=== PATIENT | male | born 1930 | race Caucasian/White ===

== ENCOUNTER 2017-01-05 08:13 | Inpatient (IN) | payer MEDICARE ==
[~2017-01-05] VITALS: Ht 177.8 cm; Wt 97.1 kg
[~2017-01-05 08:13] MED LIST: AMLO5TAB2 PO; CARV3.1212 PO; CARV6.252 PO; CHOL239. PO; CITA20TA5 PO; CLON0.1T12 PO; DIVA250T14 PO; HUM100VI SC; HYDR-3307 PO; HYDR-3342 PO; LISI-170 PO; LISI40TA PO; NYST1POW2 TP; POLY1GRA PO; PRAV40TA2 PO
[2017-01-05] MEDS ORDERED: SODIUM CHLORIDE FLUSH 10ML SYR IVF ONE (08:30)
[2017-01-05] MEDS ORDERED: SODIUM CHLORIDE 0.9% 1,000ML IVBOLUS ONE ×2 (08:30→13:00)
[2017-01-05 09:07] LABS: BLOOD UREA NITROGEN 79 mg/dL (7-18)
[2017-01-05 09:08] LABS: ASPARTATE AMINO TRANSFERASE 19 U/L (15-37)
[2017-01-05] MEDS ORDERED: HYDR-3307 PO (09:40)
[2017-01-05] MEDS ORDERED: DEXTROSE 10%, 250ML IV ONE (09:40)
[2017-01-05 09:49] LABS: DIFF TOTAL CELLS COUNTED 100 CELL DIFF
[2017-01-05 09:58] LABS: VERIFY COUNTS? YES
[2017-01-05] MEDS ORDERED: SODIUM POLY SULFONATE UDC 15 GM/60 ML PO ONE (10:00)
[2017-01-05] MEDS ORDERED: CALCIUM CHLORIDE 10%, 10ML SYR IVPush ONE (10:00)
[2017-01-05] MEDS ORDERED: INSULIN REGULAR 100 UNITS/ML, 3ML VIAL IVPush ONE (10:00)
[2017-01-05 10:01] LABS: ANISOCYTOSIS 1+
[2017-01-05] MEDS ORDERED: DEXTROSE 50%, 50ML SYRINGE ONE (11:21)
[2017-01-05] MEDS ORDERED: INSULIN REGULAR 100 UNITS/ML, 3ML VIAL ONE (11:22)
[2017-01-05] MEDS ORDERED: CALCIUM CHLORIDE 10%, 10ML SYR ONE (11:22)
[2017-01-05] MEDS ORDERED: SODIUM POLYSTYRENE SULFONATE ORAL SUSP ONE (11:23)
[2017-01-05] MEDS ORDERED: DEXTROSE 50%, 50ML SYRINGE IVPush ONE (12:00)
[2017-01-05] MEDS ORDERED: SODIUM CHLORIDE 0.9%, 500ML IVBOLUS ONE (12:00)
[2017-01-05] MEDS ORDERED: CEFTRIAXONE PMX 1GM/50ML 50 ML ONE (12:26)
[2017-01-05] MEDS: CEFTRIAXONE PMX 1GM/50ML 50 ML IVPB ONE ×2 (12:29→13:36)
[2017-01-05] MEDS: SODIUM CHLORIDE 0.9% 1,000 ML IV SCH (12:32)
[2017-01-05] MEDS ORDERED: ONDANSETRON 2MG/ML, 2ML IVP PRN (13:00)
[2017-01-05] MEDS ORDERED: PROMETHAZINE 25 MG/ML, 1ML IM PRN (13:00)
[2017-01-05] MEDS ORDERED: DOCUSATE 100 MG CAPSULE PO PRN (13:00)
[2017-01-05] MEDS ORDERED: POLYETHYLENE GLYCOL 17 GM PACKET PO PRN (13:00)
[2017-01-05] MEDS ORDERED: HEPARIN 5,000 UNITS/ML, 1ML SQ SCH (13:00)
[2017-01-05 15:28] VITALS: BP 131/63
[2017-01-05 20:49] VITALS: BP 130/71
[2017-01-05] MEDS: DIVALPROEX 250 MG TAB.ER.24H PO SCH (21:00)
[2017-01-05] MEDS: NYSTATIN TOPICAL POWDER 15GM TP SCH (21:00)
[2017-01-06] MEDS: SODIUM CHLORIDE 0.9% 1,000 ML IV SCH ×4 (00:38→21:01)
[2017-01-06 02:17] VITALS: BP 150/74
[2017-01-06 05:30] LABS: BLOOD UREA NITROGEN 74 mg/dL (7-18)
[2017-01-06 07:28] VITALS: BP 145/70
[2017-01-06] MEDS: NYSTATIN TOPICAL POWDER 15GM TP SCH ×2 (09:00→20:54)
[2017-01-06] MEDS: DIVALPROEX 250 MG TAB.ER.24H PO SCH ×2 (11:31→20:54)
[2017-01-06] MEDS: CITALOPRAM 20 MG TABLET PO SCH (11:31)
[2017-01-06] MEDS: CHOLESTYRAMINE LIGHT 4GM PACKET PO SCH (11:31)
[2017-01-06 12:56] VITALS: BP 164/76
[2017-01-06] MEDS: CEFTRIAXONE PMX 2GM/50ML 50 ML IV SCH (14:13)
[2017-01-06] MEDS: ACETAMINOPHEN 325 MG TABLET PO PRN (16:53)
[2017-01-06] MEDS: CARVEDILOL 6.25 MG TABLET PO SCH (16:54)
[2017-01-06 20:15] VITALS: BP 175/83
[2017-01-06 21:19] VITALS: BP 166/75
[2017-01-07 02:30] VITALS: BP 158/67
[2017-01-07] MEDS: ACETAMINOPHEN 325 MG TABLET PO PRN ×2 (03:53→10:36)
[2017-01-07] MEDS: CARVEDILOL 6.25 MG TABLET PO SCH (03:53)
[2017-01-07] MEDS: SODIUM CHLORIDE 0.9% 1,000 ML IV SCH (03:55)
[2017-01-07 06:30] LABS: BLOOD UREA NITROGEN 68 mg/dL (7-18)
[2017-01-07] MEDS: NYSTATIN TOPICAL POWDER 15GM TP SCH ×2 (07:30→21:00)
[2017-01-07] MEDS: CITALOPRAM 20 MG TABLET PO SCH (07:30)
[2017-01-07] MEDS: DIVALPROEX 250 MG TAB.ER.24H PO SCH ×2 (07:30→21:00)
[2017-01-07] MEDS: CHOLESTYRAMINE LIGHT 4GM PACKET PO SCH (07:30)
[2017-01-07 07:40] VITALS: BP 169/75
[2017-01-07 13:00] VITALS: BP 176/53
[2017-01-07] MEDS: CEFTRIAXONE PMX 2GM/50ML 50 ML IV SCH (15:36)
[2017-01-07] MEDS ORDERED: CARVEDILOL 12.5 MG TABLET PO SCH (18:00)
[2017-01-07 19:03] VITALS: BP 152/64
[2017-01-08] VITALS (8 sets, daily range): BP systolic 154–187; BP diastolic 46–86
[2017-01-08] MEDS: ENALAPRILAT 1.25 MG/ML, 2ML IV PRN (01:11)
[2017-01-08] MEDS: hydrALAzine 20 MG/ML, 1ML IV PRN (02:15)
[2017-01-08] MEDS ORDERED: CARVEDILOL 25 MG TABLET PO SCH (06:00)
[2017-01-08 06:27] LABS: BLOOD UREA NITROGEN 61 mg/dL (7-18)
[2017-01-08 06:33] LABS: TOTAL IRON BINDING CAPACITY 168 mcg/dL (250-450)
[2017-01-08] MEDS: SODIUM CHLORIDE 0.9% 1,000 ML IV SCH ×2 (09:00→12:32)
[2017-01-08] MEDS: FERROUS SULFATE 325 MG TABLET PO SCH (09:05)
[2017-01-08] MEDS: CHOLESTYRAMINE LIGHT 4GM PACKET PO SCH (09:05)
[2017-01-08] MEDS: DIVALPROEX 250 MG TAB.ER.24H PO SCH ×2 (09:05→19:58)
[2017-01-08] MEDS: CITALOPRAM 20 MG TABLET PO SCH (09:05)
[2017-01-08] MEDS: AMLODIPINE 5 MG TABLET PO SCH (09:05)
[2017-01-08] MEDS: NYSTATIN TOPICAL POWDER 15GM TP SCH ×2 (09:06→19:58)
[2017-01-08] MEDS: CEFTRIAXONE PMX 2GM/50ML 50 ML IV SCH (15:40)
[2017-01-08] MEDS: CARVEDILOL 12.5 MG TABLET PO SCH (18:00)
[2017-01-09 00:11] VITALS: BP 172/78
[2017-01-09] MEDS: SODIUM CHLORIDE 0.9% 1,000 ML IV SCH ×2 (01:56→15:32)
[2017-01-09] MEDS: hydrALAzine 20 MG/ML, 1ML IV PRN (03:10)
[2017-01-09 04:00] VITALS: BP 162/72
[2017-01-09] MEDS: CARVEDILOL 12.5 MG TABLET PO SCH ×2 (05:22→18:13)
[2017-01-09 06:23] LABS: BLOOD UREA NITROGEN 47 mg/dL (7-18)
[2017-01-09 06:31] VITALS: BP 179/69
[2017-01-09] MEDS: ENALAPRILAT 1.25 MG/ML, 2ML IV PRN (06:40)
[2017-01-09] MEDS: AMLODIPINE 5 MG TABLET PO SCH (09:27)
[2017-01-09] MEDS: FERROUS SULFATE 325 MG TABLET PO SCH (09:27)
[2017-01-09] MEDS: CITALOPRAM 20 MG TABLET PO SCH (09:27)
[2017-01-09] MEDS: CHOLESTYRAMINE LIGHT 4GM PACKET PO SCH (09:27)
[2017-01-09] MEDS: DIVALPROEX 250 MG TAB.ER.24H PO SCH ×2 (09:27→20:29)
[2017-01-09] MEDS: NYSTATIN TOPICAL POWDER 15GM TP SCH ×2 (09:28→20:29)
[2017-01-09] MEDS: CHOLECALCIFEROL 1,000 UNIT TABLET PO SCH (12:45)
[2017-01-09 13:22] VITALS: BP 186/67
[2017-01-09 14:18] VITALS: BP 161/75
[2017-01-09] MEDS: CEFTRIAXONE PMX 2GM/50ML 50 ML IV SCH (15:32)
[2017-01-09 20:00] VITALS: BP 163/62
[2017-01-10 00:55] VITALS: BP 143/69
[2017-01-10] MEDS: SODIUM CHLORIDE 0.9% 1,000 ML IV SCH (04:24)
[2017-01-10] MEDS: CARVEDILOL 12.5 MG TABLET PO SCH ×2 (05:41→19:04)
[2017-01-10 05:53] LABS: BLOOD UREA NITROGEN 39 mg/dL (7-18)
[2017-01-10 07:49] VITALS: BP 155/72
[2017-01-10] MEDS: DIVALPROEX 250 MG TAB.ER.24H PO SCH ×2 (08:17→20:00)
[2017-01-10] MEDS: CITALOPRAM 20 MG TABLET PO SCH (08:17)
[2017-01-10] MEDS: AMLODIPINE 5 MG TABLET PO SCH (08:17)
[2017-01-10] MEDS: FERROUS SULFATE 325 MG TABLET PO SCH (08:17)
[2017-01-10] MEDS: CHOLESTYRAMINE LIGHT 4GM PACKET PO SCH (08:18)
[2017-01-10] MEDS: CHOLECALCIFEROL 1,000 UNIT TABLET PO SCH (08:18)
[2017-01-10] MEDS: NYSTATIN TOPICAL POWDER 15GM TP SCH ×2 (08:30→20:00)
[2017-01-10] MEDS ORDERED: POTASSIUM CHLORIDE 20 MEQ TAB.ER.PRT PO ONE (08:30)
[2017-01-10 12:00] VITALS: BP 157/69
[2017-01-10] MEDS: ACETAMINOPHEN 325 MG TABLET PO PRN (12:41)
[2017-01-10] MEDS: CEFTRIAXONE PMX 2GM/50ML 50 ML IV SCH (14:27)
[2017-01-10 20:39] VITALS: BP 163/74
[2017-01-11 00:26] VITALS: BP 159/70
[2017-01-11] MEDS: CARVEDILOL 12.5 MG TABLET PO SCH ×2 (05:34→18:23)
[2017-01-11 06:27] LABS: BLOOD UREA NITROGEN 36 mg/dL (7-18)
[2017-01-11 06:55] VITALS: BP 152/70
[2017-01-11] MEDS: CHOLECALCIFEROL 1,000 UNIT TABLET PO SCH (08:51)
[2017-01-11] MEDS: CITALOPRAM 20 MG TABLET PO SCH (08:51)
[2017-01-11] MEDS: FERROUS SULFATE 325 MG TABLET PO SCH (08:51)
[2017-01-11] MEDS: AMLODIPINE 5 MG TABLET PO SCH (08:51)
[2017-01-11] MEDS: DIVALPROEX 250 MG TAB.ER.24H PO SCH ×2 (08:51→21:29)
[2017-01-11] MEDS: CHOLESTYRAMINE LIGHT 4GM PACKET PO SCH (09:00)
[2017-01-11] MEDS: NYSTATIN TOPICAL POWDER 15GM TP SCH ×2 (09:08→21:34)
[2017-01-11 12:05] VITALS: BP 141/65
[2017-01-11] MEDS: HYDROcodone/APAP 5/325 TABLET PO PRN ×2 (15:42→21:34)
[2017-01-11] MEDS: CEFTRIAXONE PMX 2GM/50ML 50 ML IV SCH (15:42)
[2017-01-11 19:14] VITALS: BP 146/70
[2017-01-11 21:25] VITALS: BP 165/81
[2017-01-12 01:28] VITALS: BP 162/65
[2017-01-12 05:16] LABS: BLOOD UREA NITROGEN 37 mg/dL (7-18)
[2017-01-12 05:27] LABS: ASPARTATE AMINO TRANSFERASE 27 U/L (15-37)
[2017-01-12 06:41] VITALS: BP 148/73
[2017-01-12] MEDS: CARVEDILOL 12.5 MG TABLET PO SCH ×2 (06:44→17:35)
[2017-01-12 07:49] VITALS: BP 150/73
[2017-01-12] MEDS: CITALOPRAM 20 MG TABLET PO SCH (09:45)
[2017-01-12] MEDS: AMLODIPINE 5 MG TABLET PO SCH (09:45)
[2017-01-12] MEDS: FERROUS SULFATE 325 MG TABLET PO SCH (09:45)
[2017-01-12] MEDS: CHOLECALCIFEROL 1,000 UNIT TABLET PO SCH (09:45)
[2017-01-12] MEDS: DIVALPROEX 250 MG TAB.ER.24H PO SCH ×2 (09:45→21:25)
[2017-01-12] MEDS: HYDROcodone/APAP 5/325 TABLET PO PRN ×2 (09:45→14:52)
[2017-01-12] MEDS: NYSTATIN TOPICAL POWDER 15GM TP SCH ×2 (09:46→21:25)
[2017-01-12 13:46] VITALS: BP 129/66
[2017-01-12 18:49] VITALS: BP 143/69
[2017-01-12 21:19] VITALS: BP 158/75
[2017-01-12] MEDS: CEFDINIR 300 MG CAPSULE PO SCH (21:25)
[2017-01-13 01:15] VITALS: BP 116/56
[2017-01-13 05:53] LABS: ASPARTATE AMINO TRANSFERASE 26 U/L (15-37); BLOOD UREA NITROGEN 42 mg/dL (7-18)
[2017-01-13] MEDS: CHOLESTYRAMINE LIGHT 4GM PACKET PO SCH ×2 (06:00→06:35)
[2017-01-13] MEDS: CARVEDILOL 12.5 MG TABLET PO SCH ×2 (06:34→17:25)
[2017-01-13 06:45] VITALS: BP 135/62
[2017-01-13] MEDS: FERROUS SULFATE 325 MG TABLET PO SCH (09:52)
[2017-01-13] MEDS: CITALOPRAM 20 MG TABLET PO SCH (09:52)
[2017-01-13] MEDS: AMLODIPINE 5 MG TABLET PO SCH (09:53)
[2017-01-13] MEDS: DIVALPROEX 250 MG TAB.ER.24H PO SCH ×2 (09:53→21:36)
[2017-01-13] MEDS: HYDROcodone/APAP 5/325 TABLET PO PRN ×2 (09:53→17:25)
[2017-01-13] MEDS: CHOLECALCIFEROL 1,000 UNIT TABLET PO SCH (09:53)
[2017-01-13] MEDS: CEFDINIR 300 MG CAPSULE PO SCH ×2 (09:54→21:36)
[2017-01-13] MEDS: NYSTATIN TOPICAL POWDER 15GM TP SCH ×2 (09:55→21:36)
[2017-01-13] MEDS ORDERED: HYDR-3343 PO (10:26)
[2017-01-13] MEDS ORDERED: AMLO5TAB2 PO (10:26)
[2017-01-13] MEDS ORDERED: CEFD300C37 PO (10:26)
[2017-01-13] MEDS ORDERED: CARV6.252 PO (10:26)
[2017-01-13] MEDS ORDERED: FERR325T20 PO (10:26)
[2017-01-13 13:17] VITALS: BP 121/68
[2017-01-13 20:00] VITALS: BP 106/64
[2017-01-14 00:54] VITALS: BP 119/62
[2017-01-14] MEDS: HYDROcodone/APAP 5/325 TABLET PO PRN ×2 (06:11→14:50)
[2017-01-14] MEDS: CARVEDILOL 12.5 MG TABLET PO SCH (06:11)
[2017-01-14] MEDS: CHOLESTYRAMINE LIGHT 4GM PACKET PO SCH (06:14)
[2017-01-14 08:36] VITALS: BP 125/57
[2017-01-14] MEDS: CEFDINIR 300 MG CAPSULE PO SCH (08:39)
[2017-01-14] MEDS: AMLODIPINE 5 MG TABLET PO SCH (08:39)
[2017-01-14] MEDS: CHOLECALCIFEROL 1,000 UNIT TABLET PO SCH (08:39)
[2017-01-14] MEDS: DIVALPROEX 250 MG TAB.ER.24H PO SCH (08:39)
[2017-01-14] MEDS: CITALOPRAM 20 MG TABLET PO SCH (08:39)
[2017-01-14] MEDS: FERROUS SULFATE 325 MG TABLET PO SCH (08:40)
[2017-01-14] MEDS: NYSTATIN TOPICAL POWDER 15GM TP SCH (10:08)
== END 2017-01-14 15:25 | DRG 689 ==
LOC: ED 08:54 → EDIP 11:33 → 4EST 15:16
PROVIDERS: ADMIT Internal Medicine; ATTEND Internal Medicine
PROC: 0T9B70Z Drainage of Bladder with Drainage Device, Via Natural or Artificial Opening (ICD-10-PCS; principal; 2017-01-05)
DX: N30.01 Acute cystitis with hematuria (principal); N17.0 Acute kidney failure with tubular necrosis; E44.0 Moderate protein-calorie malnutrition; E87.2 Acidosis; N18.4 Chronic kidney disease, stage 4 (severe); N28.1 Cyst of kidney, acquired; Z68.30 Body mass index [BMI] 30.0-30.9, adult; B96.4 Proteus (mirabilis) (morganii) as the cause of diseases classified elsewhere; D50.9 Iron deficiency anemia, unspecified; D63.8 Anemia in other chronic diseases classified elsewhere; E11.22 Type 2 diabetes mellitus with diabetic chronic kidney disease; E11.65 Type 2 diabetes mellitus with hyperglycemia; E83.39 Other disorders of phosphorus metabolism; E83.51 Hypocalcemia; E87.5 Hyperkalemia; F03.90 Unspecified dementia, unspecified severity, without behavioral disturbance, psychotic disturbance, mood disturbance, and anxiety; G40.909 Epilepsy, unspecified, not intractable, without status epilepticus; I12.9 Hypertensive chronic kidney disease with stage 1 through stage 4 chronic kidney disease, or unspecified chronic kidney disease; K21.9 Gastro-esophageal reflux disease without esophagitis; Z66 Do not resuscitate; Z85.118 Personal history of other malignant neoplasm of bronchus and lung; I95.9 Hypotension, unspecified
CPT/HCPCS: 36415; 71010; 76770; 80048; 80053; 81001; 82306; 82436; 82570; 82728; 83540; 83550; 83605; 83690; 83735; 83970; 84100; 84133; 84145; 84300; 84540; 85014; 85018; 85025; 87040; 87077; 87086; 87186; 93005; 96361; 96374; 96375; J0696; J0360; J7030; J7040